=== PATIENT | male | born 1980 | race Caucasian/White ===

== ENCOUNTER → 2016-10-07 | Outpatient (CLI) | payer BC ==
--- NOTE | 2016-10-07 10:07 | Diagnostic Imaging Report ---
Indication: Abdominal pain Technique: Continuous helical transaxial imaging of the abdomen and pelvis was obtained from the lung bases to the pubic symphysis during intravenous contrast administration. Coronal 2-D reformats were also obtained. Study obtained in a Siemens sensation [address] Total Dose length Product (DLP): [address] Dose Index Volume (CTDIvol): 19 mGy Comparison: None Findings: Lung bases are clear. Suspected gallstone. The adrenal glands, pancreas, liver and spleen are unremarkable. Kidneys are unremarkable. In the left lower quadrant of the abdomen there is a small focus of soft tissue stranding of fat, just deep to the anterior abdominal wall and adjacent to the sigmoid colon. Findings probably on the basis of mild diverticulitis. There are scattered diverticula within the colon. Please correlate clinically. There is no free fluid, free air or evidence of abscess. The appendix is not seen. There are no secondary signs of appendicitis. Bladder is nondistended. Impression: A small focus of apparent inflammation in the left lower quadrant of the abdomen just deep to the abdominal wall and adjacent to part of the sigmoid colon. Findings are nonspecific but may be due to diverticulitis. Would consider Epiploic Appendagitis as well. Followup and clinical correlation suggested. Probable gallstone The CT scanner at [facility] is accredited by the [employer] and the scans are performed using protocols designed to limit radiation exposure to as low as reasonably achievable to attain images of sufficient resolution adequate for diagnostic evaluation.
== END | disposition home or self-care (01) ==
LOC: CAT 07:24
DX: R10.9 Unspecified abdominal pain (principal)
CPT/HCPCS: 74177; Q9967